=== PATIENT | male | born 1985 ===

== ENCOUNTER 2017-03-16 07:10 | Emergency (ER) | payer BC ==
[2017-03-16] MEDS ORDERED: Albuterol-Ipratrop 3 mg / 0.5 (3 ml) UD INH STA ×2 (07:26→08:00)
--- NOTE | 2017-03-16 07:32 | C.PDOC ---
History Of Present Illness 31 year old male, with a history of asthma, presents to the ED with complaints of shortness of breath and productive cough with green sputum for 4 days. Patient also notes tactile fever and chest pain with cough. Patient has been using asthma pump at home sparingly. Patient denies tobacco use, history of DVT/ PE or intubation. He denies sick contacts, nausea, vomiting, or other complaints at this time. Time Seen by Provider: 03/16/17 07:12 Chief Complaint (Nursing): Shortness Of Breath History Per: Patient History/Exam Limitations: no limitations Onset/Duration Of Symptoms: Days (4 days ) Current Symptoms Are (Timing): Still Present Quality: "Pain" Current Respiratory Medications: See Home Med List Associated Symptoms: Fever (tactile fever), Chest Pain (secondary to cough ), Productive Cough Recent travel outside of the [place]: No Past Medical History Reviewed: Historical Data, Nursing Documentation, Vital Signs Vital Signs: Last Vital Signs Temp 98.7 F 03/16/17 07:23 Pulse 68 03/16/17 07:23 Resp 19 03/16/17 07:23 BP Pulse Ox 97 03/16/17 07:23 - Medical History PMH: Asthma, Post Traumatic Stress Disorder Surgical History: Denies: Appendectomy, CABG, Carotid Endarterectomy, Cholecystectomy, Coronary Stent, Pacemaker, Tonsillectomy - [facility] Procedures DRAINAGE OF L FOOT SUBCU/FASCIA, OPEN APPROACH (11/26/15) REPAIR LEFT FOOT SKIN, EXTERNAL APPROACH (11/26/15) Family History: States: Unknown Family Hx - Social History Hx Tobacco Use: No Hx Alcohol Use: Yes Hx Substance Use: No - Immunization History Hx Tetanus Toxoid Vaccination: Yes Hx Influenza Vaccination: No Hx Pneumococcal Vaccination: No Review Of Systems Constitutional: Positive for: Fever. Negative for: Chills Cardiovascular: Positive for: Chest Pain. Negative for: Palpitations Respiratory: Positive for: Cough, Shortness of Breath Gastrointestinal: Negative for: Nausea, Vomiting, Abdominal Pain, Diarrhea Physical Exam - Physical Exam Appears: Non-toxic, No Acute Distress Skin: Warm, Dry, No Rash Head: Atraumatic, Normacephalic, No Tenderness Eye(s): bilateral: Normal Inspection, PERRL, EOMI Ear(s): Bilateral: Normal Nose: Normal, No Discharge Oral Mucosa: Moist Throat: Normal, No Erythema, No Exudate Neck: Supple Chest: Symmetrical, No Deformity, No Tenderness Cardiovascular: Rhythm Regular, No Murmur Respiratory: No Rales, No Rhonchi, Wheezing (expiratory wheeze ) Gastrointestinal/Abdominal: Soft, No Tenderness, No Distention, No Guarding, No Rebound Extremity: Normal ROM, No Tenderness, No Pedal Edema, No Calf Tenderness, Capillary Refill (good capillary refill, less than 2 seconds ), No Deformity, No Swelling Neurological/Psych: Oriented x3 ED Course And Treatment ECG: Interpreted By Me, Viewed By Me ECG Rhythm: Sinus Rhythm Interpretation Of ECG: Normal intervals, normal axis, LVH J point ST segment elevations. No reciprocal changes. Rate From EC - Radiology CXR: Interpreted by Me, Viewed By Me CXR Interpretation: Yes: No Acute Disease Progress Note: EKG and CXR were ordered. Patient was given Zithromax, prednisone , motrin, Duoneb, and nebuilzer treatment. Medical Decision Making Medical Decision Making: Upon re-evaluation, peak flow of 450. Disposition Counseled Patient/Family Regarding: Studies Performed, Diagnosis, Need For Followup, Rx Given - Disposition Referrals: [facility] [Outside] Disposition: HOME/ ROUTINE Disposition Time: 08:52 Condition: IMPROVED Additional Instructions: follow up with medical clinic in 2 days call to make an appointment take medications as prescribed return to hospital if symptoms worsens or progress Prescriptions: Albuterol HFA [Ventolin HFA 90 mcg/actuation (8 g)] 2 puff IH [id number] #1 puff Azithromycin [Zithromax] 250 mg PO DAILY #4 tab Naproxen [Naprosyn] 500 mg PO BID PRN #16 tab PRN Reason: Pain, Moderate (4-7) predniSONE [predniSONE Tab] 50 mg PO DAILY #4 tab Instructions: Acute Bronchitis (ED) Forms: [facility] ([facility]), General Discharge Instructions - Clinical Impression Clinical Impression: Bronchitis - Scribe Statement The provider has reviewed the documentation as recorded by the Scribe Zarina Turk All medical record entries made by the Scribe were at my direction and personally dictated by me. I have reviewed the chart and agree that the record accurately reflects my personal performance of the history, physical exam, medical decision making, and the department course for this patient. I have also personally directed, reviewed, and agree with the discharge instructions and disposition.
[2017-03-16 09:36] VITALS: BP 156/111; PULSE 81; RESP 18; TEMP 98.2; O2SAT 98
--- NOTE | 2017-03-16 10:28 | RAD ---
HISTORY: cough COMPARISON: None available. TECHNIQUE: Chest PA and lateral FINDINGS: LUNGS: No focal consolidation. Please note that chest x-ray has limited sensitivity for the detection of pulmonary masses. PLEURA: No significant pleural effusion identified. No definite pneumothorax . CARDIOVASCULAR: The cardiomediastinal silhouette appears within normal limits of size. OSSEOUS STRUCTURES: No acute osseous abnormality identified. VISUALIZED UPPER ABDOMEN: Unremarkable. OTHER FINDINGS: None. IMPRESSION: No focal consolidation, significant pleural effusion, or definite pneumothorax identified.
--- NOTE | 2017-03-18 08:43 | CARD ---
APPROVED REPORT EKG Measurement Heart [id number] <Conclusion> Normal sinus rhythm Moderate voltage criteria for LVH, may be normal variant ST elevation, consider early repolarization, pericarditis, or injury Abnormal ECG
== END 2017-03-16 09:36 | disposition home or self-care (01) ==
LOC: C.ER 07:10
DX: J40 Bronchitis, not specified as acute or chronic (principal)